=== PATIENT | female | born 1965 | race Caucasian/White ===

== ENCOUNTER 2018-10-13 15:49 | Emergency (ER) | payer OTHER ==
[~2018-10-13] VITALS: Ht 157.5 cm; Wt 77.1 kg
[2018-10-13 16:19] VITALS: BP 123/77
--- NOTE | 2018-10-13 17:10 | NUR ---
PT. BIB C/O BACK HEAD PAIN. PT STATES SHE WOKE UP THIS MORNING WITH HEAD PAIN , NO TRAUMA OR INJURY. - BLURRY VISION, -N/V/D. PT. STATES " I WOKE UP AND IT HURT REALLY BAD IN THE TOP PART OF MY NECK THAT I FEEL I CANT EVEN MOVE MY HEAD IT FEELS TIGHT AND THROBBING". PERRLA 3MM BRISK BILAT. FACIAL SYMMETRY NOTED. BILAT. 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 ABLE TO SPEAK IN FULL AND COMPLETE SENTENCES. ER MD MADE AWARE. SAFETY PRECAUTIONS IMPLEMENTED. WILL CONTINUE TO MONITOR.
[2018-10-13] MEDS ORDERED: oxyCODONE/APAP 5/325 MG 1 TAB TAB PO ONE (17:40)
[2018-10-13] MEDS ORDERED: KETOROLAC 30 MG/ML VIAL IM ONE (17:40)
--- NOTE | 2018-10-13 18:15 | NUR ---
PT. LAYING DOWN IN BED, RR EVEN AND UNLABORED. VSS. AT BEDSIDE. HOB ELEVATED BED RAILS X 2 WILL CONTINUE TO MONITOR.
[2018-10-13 18:48] VITALS: BP 124/78
--- NOTE | 2018-10-13 18:48 | NUR ---
Patient discharged with v/s stable. Written and verbal after care instructions given and explained. Patient alert, oriented and verbalized understanding of instructions. Ambulatory with steady gait. All questions addressed prior to discharge. ID band removed. Patient advised to follow up with PMD. Rx of ZOFRAN ODT , IBUPROFEN 600MG, NORCO 5/325 given. Patient educated on indication of medication including possible reaction and side effects. Opportunity to ask questions provided and answered.
== END 2018-10-13 18:48 | disposition home or self-care (01) ==
LOC: MED 15:49
DX: R51 Headache (principal); E11.9 Type 2 diabetes mellitus without complications; Z88.0 Allergy status to penicillin
CPT/HCPCS: 96372; 99283; J1885

== ENCOUNTER 2022-10-28 07:15 | Emergency (ER) | payer OTHER ==
[~2022-10-28] VITALS: Ht 162.6 cm; Wt 71.2 kg
[2022-10-28 07:31] VITALS: BP 147/79
--- NOTE | 2022-10-28 07:33 | NUR ---
PT SWABBED FOR COVID, FLU, STREP
[2022-10-28] MEDS ORDERED: NAPR-54 PO (09:32)
[2022-10-28] MEDS ORDERED: FLONAS NS (09:32)
--- NOTE | 2022-10-28 09:47 | NUR ---
Patient discharged with v/s stable. Written and verbal after care instructions given and explained. Patient verbalized understanding. Ambulatory with steady gait. All questions addressed prior to discharge. Advised to follow up with PMD.
== END 2022-10-28 09:46 | disposition home or self-care (01) ==
LOC: MED 07:15
DX: J06.9 Acute upper respiratory infection, unspecified (principal); Z20.822 Contact with and (suspected) exposure to COVID-19; E11.9 Type 2 diabetes mellitus without complications; Z79.899 Other long term (current) drug therapy; Z98.890 Other specified postprocedural states; Z88.0 Allergy status to penicillin
CPT/HCPCS: 87081; 99283